=== PATIENT | female | born 1935 | race Hispanic/Latino ===

== ENCOUNTER 2017-11-02 14:30 | Emergency (ER) | payer MEDICARE ==
[2017-11-02 15:35] LABS: BASOPHILS % (AUTO) 0.7 % (0.0-5.0); EOSINOPHILS % (AUTO) 0.3 % (0.0-8.0); HEMATOCRIT 43.1 % (36-48); LYMPHOCYTES % (AUTO) 10.4 % (21.0-51.0); MEAN CORPUSCULAR HEMOGLOBIN 28.2 pg (27.0-33.0); MEAN CORPUSCULAR HGB CONC 32.4 g/dL (32.0-36.0); MEAN CORPUSCULAR VOLUME 86.9 fL (79-99); MONOCYTES % (AUTO) 7.7 % (3.0-13.0); NEUTROPHILS % (AUTO) 80.9 % (40.0-77.0); NUCLEATED RED BLOOD CELLS 0.1 % (0.0-0.19); PLATELET COUNT (AUTO) 352 K/uL (130-400); RED BLOOD CELL COUNT(AUTO) 4.96 MIL/uL (4.00-5.50); RED CELL DISTRIBUTION WIDTH 14.5 % (11.0-15.5); WHITE BLOOD COUNT (AUTO) 9.1 K/uL (4.8-10.8)
[2017-11-02 15:48] LABS: INR 0.93 (0.85-1.15); PARTIAL THROMBOPLASTIN TIME 24.2 SEC (26.3-35.5); PROTHROMBIN TIME 9.8 SEC (9.6-11.6)
[2017-11-02 16:02] LABS: B-TYPE NATRIURETIC PEPTIDE 214 pg/mL (0-100)
[2017-11-02 16:04] LABS: POTASSIUM 4.3 mmol/L (3.5-5.1)
[2017-11-02 16:18] LABS: ALBUMIN 3.7 g/dL (3.5-5.0); BILIRUBIN,TOTAL 0.2 mg/dL (0.2-1.0); CREATINE KINASE MB 4.1 ng/mL (0.5-3.6); TOTAL PROTEIN, SERUM 7.6 g/dL (6.0-8.3)
== END 2017-11-02 19:58 | disposition home or self-care (01) ==
LOC: EDH 14:30
DX: R07.89 Other chest pain (principal); R91.8 Other nonspecific abnormal finding of lung field
CPT/HCPCS: 36415; 71045; 80053; 82550; 82553; 83874; 83880; 84484; 85025; 85610; 85730; 93005